=== PATIENT | male | born 1975 ===

== ENCOUNTER 2022-10-13 09:46 | Outpatient (CLI) | payer OTHER | END 2022-10-13 09:54 | disposition home or self-care (01) | LOC: TOM 09:46 | PROVIDERS: ATTEND Internal Medicine Gastroenterology | DX: R19.4 Change in bowel habit (principal); R19.5 Other fecal abnormalities ==

== ENCOUNTER 2022-12-31 07:41 | Outpatient (CLI) | payer OTHER | END 2022-12-31 07:49 | disposition home or self-care (01) | LOC: RX STUDY 07:41 | DX: R13.11 Dysphagia, oral phase (principal); R49.0 Dysphonia; J38.3 Other diseases of vocal cords ==